=== PATIENT | male | born 1975 | race Caucasian/White ===

== ENCOUNTER 2021-05-29 12:49 | Emergency (ER) | payer OTHER ==
[~2021-05-29] VITALS: Ht 177.8 cm; Wt 118.6 kg
[2021-05-29] MEDS ORDERED: ACET500P3 PO (13:06)
[2021-05-29] MEDS ORDERED: DRAM50TA9 PO (13:06)
[2021-05-29 18:12] VITALS: BP 152/89
[2021-05-29 18:42] LABS: AMPHETAMINES LEVEL URINE NEGATIVE (NEGATIVE); BARBITURATES URINE NEGATIVE (NEGATIVE); BENZODIAZEPINES URINE NEGATIVE (NEGATIVE); CANNABINOIDS URINE NEGATIVE (NEGATIVE); COCAINE METABOLITE URINE NEGATIVE (NEGATIVE); METHADONE URINE NEGATIVE (NEGATIVE); OPIATES URINE NEGATIVE (NEGATIVE); PHENCYCLIDINE URINE NEGATIVE (NEGATIVE)
== END 2021-05-29 18:21 | disposition home or self-care (01) ==
LOC: M ED 12:49 → EDBD 12:49 → M ED 18:21
DX: F41.0 Panic disorder [episodic paroxysmal anxiety] (principal); Z77.098 Contact with and (suspected) exposure to other hazardous, chiefly nonmedicinal, chemicals; F17.210 Nicotine dependence, cigarettes, uncomplicated